=== PATIENT | female | born 1965 | race Caucasian/White ===

== ENCOUNTER 2017-10-04 23:17 | Emergency (ER) | payer OTHER ==
[~2017-10-04] VITALS: Ht 149.9 cm; Wt 60.0 kg
[2017-10-05] MEDS ORDERED: CLARITIN,ALAVAR10 MG PO (02:16)
[2017-10-05] MEDS ORDERED: ACULAR 0.5100 DROP/5 BOTH EYES (02:16)
[2017-10-05 02:50] VITALS: BP 139/89
== END 2017-10-05 02:53 | disposition home or self-care (01) ==
LOC: EME 23:17
DX: H10.13 Acute atopic conjunctivitis, bilateral (principal); Z90.49 Acquired absence of other specified parts of digestive tract; F17.200 Nicotine dependence, unspecified, uncomplicated
CPT/HCPCS: 99281; 99284

== ENCOUNTER 2017-11-02 18:37 | Emergency (ER) | payer OTHER ==
[~2017-11-02] VITALS: Ht 149.9 cm; Wt 59.1 kg
[~2017-11-02 18:37] MED LIST: ACULAR 0.5100 DROP/5 BOTH EYES; CLARITIN,ALAVAR10 MG PO
[2017-11-02 19:27] VITALS: BP 133/87
[2017-11-02 19:27] LABS: HEMATOCRIT 42.3 % (36.0-46.0); HEMOGLOBIN 14.9 G/DL (11.9-15.5); MCH 33.1 PG (29.0-34.0); MCHC 35.2 G/DL (30.0-36.0); RBC DIS.WIDTH-CV 14.2 % (11.8-14.6); RBC DIS.WIDTH-SD 49.1 % (39-53); WHITE BLOOD COUNT 7.8 K/uL (4.1-10.2)
[2017-11-02 19:37] LABS: ALBUMIN 4.5 g/dL (3.2-4.8); CHLORIDE 101 mEq/L (99-109); POTASSIUM 4.5 mEq/L (3.7-5.4); SODIUM 138 mEq/L (136-147)
[2017-11-02 19:40] LABS: GLUCOSE 87 mg/dL (70-99)
[2017-11-02 19:41] LABS: TOTAL BILIRUBIN 0.5 mg/dL (0.0-1.0)
[2017-11-02 19:43] LABS: ALKALINE PHOSPHATASE 73 IU/L (3-129); CREATININE 1.4 mg/dL (0.6-1.3); GFR ESTIMATE (CALCULATED) 42 mL/min/
[2017-11-02 19:44] LABS: UREA NITROGEN (BUN) 24 mg/dL (9-23)
[2017-11-02 19:45] LABS: AST (GOT) 20 IU/L (2-34)
[2017-11-02 19:46] LABS: ALT (GPT) 11 IU/L (3-49)
[2017-11-02 19:49] LABS: TROP-I INTERPRETATION NEGATIVE; TROPONIN-I < 0.01 ng/mL (0.0-0.30)
[2017-11-02 19:59] LABS: PLATELET COUNT 203 K/uL (156-360)
[2017-11-02 22:00] LABS: THYROTROPIN (TSH) > 100 MIU/L (0.4-5.5)
[2017-11-02] MEDS ORDERED: LEVO-T88 MCG PO (23:51)
== END 2017-11-03 00:08 | disposition home or self-care (01) ==
LOC: EME 18:37
PROVIDERS: Physician Assistant
DX: E03.9 Hypothyroidism, unspecified (principal); K64.9 Unspecified hemorrhoids; F17.200 Nicotine dependence, unspecified, uncomplicated; Z90.49 Acquired absence of other specified parts of digestive tract
CPT/HCPCS: 71046; 74176; 80053; 83880; 84439 GA; 84443; 84484; 85027; 93005; 99281; 99284

== ENCOUNTER 2017-11-08 15:36 | Emergency (ER) | payer OTHER ==
[~2017-11-08] VITALS: Ht 149.9 cm; Wt 59.3 kg
[~2017-11-08 15:36] MED LIST changes: +LEVO-T88 MCG PO
[2017-11-08] MEDS ORDERED: CLEOCIN300 MG PO (16:15)
[2017-11-08 16:42] VITALS: BP 142/93
== END 2017-11-08 16:43 | disposition home or self-care (01) ==
LOC: EME 15:36 → RME 15:36
DX: L03.113 Cellulitis of right upper limb (principal); F17.200 Nicotine dependence, unspecified, uncomplicated
CPT/HCPCS: 99281; 99284

== ENCOUNTER 2018-01-09 12:38 | Emergency (ER) | payer OTHER ==
[~2018-01-09] VITALS: Ht 149.9 cm; Wt 59.0 kg
[~2018-01-09 12:38] MED LIST changes: +CLEOCIN300 MG PO
[2018-01-09] MEDS ORDERED: MEDROL DOSEPAK4 MG PO (14:21)
[2018-01-09] MEDS ORDERED: FLEXERIL10 MG PO (14:21)
[2018-01-09 15:17] VITALS: BP 109/84
== END 2018-01-09 15:18 | disposition home or self-care (01) ==
LOC: EME 12:38
DX: M54.5 Low back pain (principal); M54.16 Radiculopathy, lumbar region; F17.200 Nicotine dependence, unspecified, uncomplicated; Z90.49 Acquired absence of other specified parts of digestive tract
CPT/HCPCS: 72100; 99281; 99283; J7512